=== PATIENT | male | born 1970 | race Caucasian/White ===

== ENCOUNTER → 2016-08-06 | Outpatient (CLI) | payer BC ==
[2016-08-06 16:10] VITALS: BP 139/85; TEMP 98.2; BMI 51.0
--- NOTE | 2016-08-06 16:26 | P.HPBAR ---
Bariatric H&P - History & Physicial H&P Date: 08/06/16 History & Physicial: Visit/CC: presurgical visit Patient initial contact: Initial weight: 150.956 kg Initial weight in pounds: 332.80 Height: 5 ft 7 in Initial BMI: 52.1 Last weight: Current weight: 147.735 kg Current weight in pounds: 325.70 Current BMI: 51.0 [place] body weight (based on NIH guidelines): 67.132 kg Excess body weight loss: 3.8% The patient is a 46 year-old M who presents for Bariatric Assessment. Patient presents today for preoperative consultation. He apparently has his paperwork in order. Patient has undergone psychological evaluation as well as has his R of medical necessity from his primary care doctor. Patient will be scheduled for EGD. And then gastric sleeve surgery Past Medical History Past Medical History: GERD/Reflux, Hyperlipidemia, Hypertension, Osteoarthritis (OA) Additional Past Medical History / Comment(s): BRONCHITIS; SHORTNESS OF BREATH, herniated disc History of Any Multi-Drug Resistant Organisms: C-DIFF Year Discovered:: 2013 MDRO Source:: stool Past Surgical History: Adenoidectomy, Back Surgery Additional Past Surgical History / Comment(s): C3-C4 FX Past Anesthesia/Blood Transfusion Reactions: No Reported Reaction Past Psychological History: No Psychological Hx Reported Smoking Status: Former smoker Past Alcohol Use History: None Reported Past Drug Use History: None Reported Surgical - Exam Vital Signs Temp BP 98.2 F 139/85 08/06/16 16:05 08/06/16 16:05 - General well developed, no distress - Eyes PERRL - ENT normal pinna - Neck no masses - Respiratory normal expansion - Cardiovascular Rhythm: regular - Abdomen Abdomen: soft, non tender Bariatric Assessment & Plan Plan: Patient understands the risks and benefits of the gastric sleeve procedure. The patient was scheduled for EGD. He'll to be scheduled for laparoscopic sleeve gastrectomy in 3-4 weeks. Bariatric Checklist Checklist: Plan: Checklist: EGD: 1. Hiatal hernia: 2. H. Pylori: HgbA1c: Vitamin D: Smoking: Former smoker Primary care physician referral: Rubén ([facility]) Psychiatry clearance: Cardiology clearance: Sleep study: Diet journal: VTE risk score: VTE risk level: Rehab needs at discharge:
== END | disposition home or self-care (01) ==
LOC: BARWHC3 13:31
PROVIDERS: ATTEND Surgery
DX: Z01.818 Encounter for other preprocedural examination (principal); E66.01 Morbid (severe) obesity due to excess calories; Z68.43 Body mass index [BMI] 50.0-59.9, adult; Z87.891 Personal history of nicotine dependence
CPT/HCPCS: 99211

== ENCOUNTER 2016-08-16 06:57 | Day surgery (SDC) | payer BC ==
[2016-08-14 15:17] VITALS: BMI 50.8
[~2016-08-16 06:57] MED LIST: LACTATED RINGERS 1,000 ML IV SCH; LIDOCAINE 1% 20 ML VIAL (10MG/ML) FOR IV START INTRADERMA PRN
[2016-08-16 07:08] VITALS: RESP 20; TEMP 97
[2016-08-16] MEDS ORDERED: LACTATED RINGERS 1,000 ML IV ONE ×2 (07:20)
[2016-08-16] MEDS ORDERED: PROPOFOL 10 MG/ML 20 ML VIAL IV ONE (07:40)
[2016-08-16] MEDS ORDERED: fentaNYL (PF) 50 MCG/ML 2 ML AMP ONE (07:40)
[2016-08-16] MEDS ORDERED: MIDAZOLAM 2 MG/2 ML VIAL ONE (07:40)
--- NOTE | 2016-08-16 07:43 | P.GSHP ---
History of Present Illness H&P Date: 08/16/16 Chief Complaint: GERD, morbid obesity This a 46-year-old male who's had complaints of GERD. Patient is undergoing workup for sleeve gastrectomy. Patient presents today for EGD. He's had long- standing problems with reflux. - Constitutional Constitutional: Reports as per HPI Past Medical History Past Medical History: GERD/Reflux, Hyperlipidemia, Hypertension, Osteoarthritis (OA) Additional Past Medical History / Comment(s): 2013 C-Diff, IBS, herniated disc , hx fx c3-c4 History of Any Multi-Drug Resistant Organisms: C-DIFF Date of last positivie culture/infection: 2013 MDRO Source:: stool Past Surgical History: Appendectomy Additional Past Surgical History / Comment(s): C3-C4 FX Past Anesthesia/Blood Transfusion Reactions: No Reported Reaction Past Psychological History: Anxiety, Depression Additional Psychological History / Comment(s): social anxiety Smoking Status: Former smoker Past Alcohol Use History: None Reported Additional Past Alcohol Use History / Comment(s): quit smoking age 31, smoked for 15 yrs, 1-2 PPD Past Drug Use History: None Reported - Past Family History Mother Family Medical History: No Reported History Medications and Allergies Home Medications Medication Instructions Recorded Confirmed Type Sertraline HCl [Zoloft] 150 mg PO HS 07/26/15 08/14/16 History ALPRAZolam [Xanax] 1 mg PO TID PRN 08/14/16 08/14/16 History Calcium+Vitamin D+ Magnesium 2 tab PO BID 08/14/16 08/14/16 History Iron + Vitamin C 3 tab PO DAILY 08/14/16 08/14/16 History Multivitamins, Thera [Multivitamin] 2 tab PO DAILY 08/14/16 08/14/16 History Nascrobal 500 mcg INHALATION SA 08/14/16 08/14/16 History buPROPion HCL [Wellbutrin SR] 150 mg PO HS 08/14/16 08/14/16 History Allergies Allergy/AdvReac Type Severity Reaction Status Date / Time No Known Allergies Allergy Verified 08/14/16 15:04 Surgical - Exam Vital Signs Temp Pulse Resp BP Pulse Ox 97.0 F L 77 20 123/73 96 08/16/16 07:07 08/16/16 07:07 08/16/16 07:07 08/16/16 07:07 08/16/16 07:07 - General well developed, no distress - Eyes PERRL - ENT normal pinna - Neck no masses - Respiratory normal expansion - Cardiovascular Rhythm: regular - Abdomen Abdomen: soft, non tender Assessment and Plan Plan: GERD Morbid obesity We will perform EGD.
--- NOTE | 2016-08-16 07:54 | P.OP ---
Date of Procedure: 08/16/16 Preoperative Diagnosis: GERD Morbid obesity Postoperative Diagnosis: Mild antral gastritis Procedure(s) Performed: EGD Anesthesia: MAC Surgeon: Juan Pool Pathology: other (Antral gastritis) Condition: stable Disposition: PACU Description of Procedure: The patient's placed on the endoscopy table in the lateral position. He received IV sedation. The gastroscope some placed oropharynx passed into the esophagus and into the stomach. Scope was then placed through the pylorus. The first and second portion of the duodenum appeared normal. The scope was then brought back the antrum this is mildly inflamed. A biopsies performed. Scope was then retroflexed and the remainder stomach appeared normal. There was some liquid food in the stomach. There is no evidence of any hiatal hernia. The GE junction was at 40 cm. The distal esophagus appeared normal. The proximal esophagus appeared normal. Scope was withdrawn for patient.
[2016-08-16 08:25] VITALS: BP 112/70; PULSE 68
== END 2016-08-16 08:45 | disposition home or self-care (01) ==
LOC: ORWHC2ENDO 06:57
PROVIDERS: ATTEND Surgery
DX: K21.9 Gastro-esophageal reflux disease without esophagitis (principal); K29.50 Unspecified chronic gastritis without bleeding; K58.9 Irritable bowel syndrome, unspecified; E66.01 Morbid (severe) obesity due to excess calories; I10 Essential (primary) hypertension; E78.5 Hyperlipidemia, unspecified; F41.8 Other specified anxiety disorders; F32.9 Major depressive disorder, single episode, unspecified; Z79.899 Other long term (current) drug therapy; Z87.891 Personal history of nicotine dependence; Z90.49 Acquired absence of other specified parts of digestive tract; Z98.1 Arthrodesis status
CPT/HCPCS: 88305; 88342; 43239; J2250; J3010; J2704

== ENCOUNTER → 2016-09-03 | Outpatient (CLI) | payer BC ==
[2016-09-03 11:16] LABS: Basophils % (A) 1 %; CH 29.3; Eosinophils # (A) 0.2 k/uL (0-0.7); Eosinophils % (A) 2 %; HCT 45.3 % (39.0-53.0); HDW 2.63; Luc # (Auto) 0.34; Luc % (Auto) 4; Lymphocytes # (A) 1.5 k/uL (1.0-4.8); Lymphocytes % (A) 19 %; MCH 28.6 pg (25.0-35.0); MCHC 33.1 g/dL (31.0-37.0); MCV 86.5 fL (80.0-100.0); Mean Platelet Volume 6.8; Monocytes # (A) 0.6 k/uL (0-1.0); Monocytes % (A) 8 %; Neutrophils % (A) 66 %; RBC 5.24 m/uL (4.30-5.90); RDW 13.5 % (11.5-15.5); WBC 7.7 k/uL (3.8-10.6); WBC (Perox) 7.46
[2016-09-03 11:34] LABS: ALT 41 U/L (21-72); AST 19 U/L (17-59); Alkaline Phosphatase 104 U/L (38-126); Anion Gap 12 mmol/L; Blood Urea Nitrogen 27 mg/dL (9-20); Calcium 9.3 mg/dL (8.4-10.2); Carbon Dioxide 24 mmol/L (22-30); Chloride 104 mmol/L (98-107); Glucose 107 mg/dL (74-99); Non-African American GFR(MDRD) >60 (>60 ml/min/1.73 sqM); Sodium 140 mmol/L (137-145); Total Bilirubin 0.3 mg/dL (0.2-1.3); Total Protein 6.8 g/dL (6.3-8.2)
== END | disposition home or self-care (01) ==
LOC: LABWHC1 10:21
PROVIDERS: ATTEND Surgery
DX: Z01.812 Encounter for preprocedural laboratory examination (principal)
CPT/HCPCS: 36415; 80053; 85025

== ENCOUNTER 2016-09-28 07:39 | Inpatient (IN) | payer BC ==
[~2016-09-28 07:39] MED LIST changes: +DEXAMETHASONE SOD PHOSPHATE 10 MG/ML 1 ML VIAL IV ONE; -LACTATED RINGERS 1,000 ML IV SCH; -LIDOCAINE 1% 20 ML VIAL (10MG/ML) FOR IV START INTRADERMA PRN; +MIDAZOLAM 2 MG/2 ML VIAL IV PRN; +ONDANSETRON 4 MG/2 ML VIAL IVP ONE; +SCOPOLAMINE 1.5MG/72HR PATCH TRANSDERM ONE; +ceFAZolin 3 GM in SODIUM CHLORIDE 0.9% 100 ML IVPB ONE
[2016-09-28] MEDS: LACTATED RINGERS 1,000 ML IV SCH (08:15)
[2016-09-28] MEDS ORDERED: FAMOTIDINE 20 MG/2 ML VIAL IV ONE (08:20)
[2016-09-28] MEDS ORDERED: SODIUM CHLORIDE 0.9% IRRIGATION ONE (08:27)
[2016-09-28] MEDS ORDERED: METHYLENE BLUE IRRIGATION ONE (08:27)
--- NOTE | 2016-09-28 09:46 | P.GSHP ---
History of Present Illness H&P Date: 09/28/16 Chief Complaint: Morbid obesity This a 46-year-old male referred from Dr. mooney. Patient presents today for laparoscopic sleeve gastrectomy. Patient has had lifetime problems morbid obesity. Patient has been well detailed procedure sleeve gastrectomy. He is aware the risks and complications.. He is aware the risk of gastric staple line disruption, bleeding or perforation. - Constitutional Constitutional: Reports as per HPI Past Medical History Past Medical History: GERD/Reflux, Osteoarthritis (OA) Additional Past Medical History / Comment(s): 2013 C-Diff, IBS, hx. ?herniated disc, hx fx c3-c4, ?sleep apnea-never been tested but thinks probably has History of Any Multi-Drug Resistant Organisms: C-DIFF Date of last positivie culture/infection: 2013 MDRO Source:: stool Past Surgical History: Appendectomy Additional Past Surgical History / Comment(s): EGD Past Anesthesia/Blood Transfusion Reactions: No Reported Reaction Past Psychological History: Anxiety, Depression Additional Psychological History / Comment(s): social anxiety Smoking Status: Former smoker Past Alcohol Use History: None Reported Additional Past Alcohol Use History / Comment(s): quit smoking age 31, smoked for 15 yrs, 1-2 PPD Past Drug Use History: None Reported - Past Family History Mother Family Medical History: No Reported History Medications and Allergies Home Medications Medication Instructions Recorded Confirmed Type Sertraline HCl [Zoloft] 200 mg PO HS 07/26/15 09/26/16 History ALPRAZolam [Xanax] 1 mg PO TID PRN 08/14/16 09/28/16 History Calcium+Vitamin D+ Magnesium 2 tab PO BID 08/14/16 09/28/16 History Iron + Vitamin C 3 tab PO DAILY 08/14/16 09/28/16 History Multivitamins, Thera [Multivitamin] 2 tab PO DAILY 08/14/16 09/26/16 History buPROPion HCL [Wellbutrin SR] 150 mg PO HS 08/14/16 09/26/16 History Nascobal Nasal [place] 500 mcg NASAL SA 09/26/16 09/28/16 History Allergies Allergy/AdvReac Type Severity Reaction Status Date / Time No Known Allergies Allergy Verified 09/28/16 08:00 Surgical - Exam Vital Signs Temp Pulse Resp BP Pulse Ox 97.6 F 71 16 123/72 98 09/28/16 08:07 09/28/16 08:07 09/28/16 08:07 09/28/16 08:07 09/28/16 08:07 BMI 51 - General well developed, no distress - Eyes PERRL - ENT normal pinna - Neck no masses - Respiratory normal expansion - Cardiovascular Rhythm: regular - Abdomen Abdomen: soft, non tender Assessment and Plan Plan: Morbid obesity with severe comorbidities. BMI 51. We'll perform laparoscopic sleeve gastrectomy.
[2016-09-28] MEDS ORDERED: ENOXAPARIN 40 MG/0.4 ML SYRINGE SQ STA (09:53)
[2016-09-28] MEDS ORDERED: ROCURONIUM BROMIDE 10 MG/ML 10 ML VIAL IV ONE (10:09)
[2016-09-28] MEDS ORDERED: NEOSTIGMINE 1 MG/ML 10 ML VIAL ONE (10:09)
[2016-09-28] MEDS ORDERED: MIDAZOLAM 2 MG/2 ML VIAL ONE (10:09)
[2016-09-28] MEDS ORDERED: SUCCINYLCHOLINE CHLORIDE 100 MG/5 ML SYR IV ONE (10:09)
[2016-09-28] MEDS ORDERED: HYDROmorphone (PF) 1 MG/ML ONE (10:09)
[2016-09-28] MEDS ORDERED: PROPOFOL 10 MG/ML 20 ML VIAL IV ONE (10:09)
[2016-09-28] MEDS ORDERED: fentaNYL (PF) 50 MCG/ML 2 ML AMP ONE (10:09)
[2016-09-28] MEDS ORDERED: LIDOCAINE 1% INJ 10MG/ML (20 ML MDV) ONE (10:09)
[2016-09-28] MEDS ORDERED: GLYCOPYRROLATE 0.2 MG/ML 2 ML VIAL ONE (10:09)
[2016-09-28] MEDS ORDERED: BUPIVACAIN-EPI 0.25%-1:200,000 30 ML VIAL SQ ONE (10:35)
[2016-09-28] MEDS ORDERED: LACTATED RINGERS 1,000 ML IV ONE ×2 (10:52→13:23)
[2016-09-28] MEDS ORDERED: NALOXONE 0.4 MG/ML 1 ML VIAL IV PRN (12:07)
--- NOTE | 2016-09-28 12:07 | P.OP ---
Date of Procedure: 09/28/16 Preoperative Diagnosis: Morbid obesity BMI 51 Postoperative Diagnosis: Morbid obesity Procedure(s) Performed: Laparoscopic sleeve gastrectomy Anesthesia: BARBARA Surgeon: Juan Pool Estimated Blood Loss (ml): 50 Pathology: other (Stomach) Condition: stable Disposition: PACU Description of Procedure: The patient was placed on the operating room table in the supine position. She received general anesthesia and then was placed in dorsal lithotomy position. Her abdomen was prepped and draped in sterile fashion. The skin incision sites were anesthetized 1% local Xylocaine. And then the skin was incised with an 11 blade in the left lateral position. Using a blade less trocar under direct visualization the peritoneal cavity was entered. The abdomen was insufflated and then a 5 mm laparoscope was placed into the peritoneal cavity. A 5 mm trocar was placed in the right epigastric, and right lateral position. A 15 mm trocar was placed in the supra-umbilical position and another 5 mm trocar was placed in the left lateral position. The left lateral lobe of the liver was retracted. The stomach was visualized. The stomach was massive. The greater curvature of the stomach was then dissected using the Harmonic scissors. The dissection occurred approximately 5 cm from the pylorus to the level of the left shraddha. There was no hiatal hernia seen. At this point a 40-Portuguese bougie dilator was placed the oropharynx and passed into the esophagus and into the stomach by the SEAT JOINER CHAINSTITCH. The sleeve gastrectomy was performed by using the powered echelon stapler with a seam guard buttress material. Sequential firings of the stapler were performed. The gastric remnant was then brought out through the 15 mm trocar site. The dilator was withdrawn. And a orogastric tube was replaced into the stomach. The stomach was insufflated with 200 mL of methylene blue normal saline. There was no evidence of extravasation. The abdomen was irrigated there is no bleeding seen. The César-Thierno device was used to close the 15 mm trocar with 0 Vicryl. Skin was closed with interrupted 3-0 Monocryl sutures once the trochars withdrawn. Dermabond dressing was applied. Patient was sent to recovery in stable condition.
[2016-09-28] MEDS: HYDROmorphone 1 MG/ML 1 ML SYRINGE IVP PRN ×7 (12:23→22:53)
[2016-09-28] MEDS ORDERED: ONDANSETRON 4 MG/2 ML VIAL IVP ONE (12:38)
[2016-09-28] MEDS ORDERED: LABETALOL SYRINGE 5 MG/ML IVP ONE (13:20)
[2016-09-28 14:48] VITALS: BMI 51.4
[2016-09-28] MEDS: ALBUTEROL NEBULIZED 2.5 MG/3 ML INHALATION SCH ×2 (15:44→20:26)
--- NOTE | 2016-09-28 16:35 | P.HPIM ---
History of Present Illness H&P Date: 09/28/16 Review of Systems Constitutional: Reports as per HPI, Denies anorexia, Denies chills, Denies chronic headaches, Denies chronic pain, Denies daytime sleepiness, Denies fatigue, Denies fever, Denies lethargy, Denies malaise, Denies night sweats, Denies poor appetite, Denies sweats, Denies weakness, Denies weight gain, Denies weight loss Eyes: bilateral as per HPI, denies blurred vision, denies bulging eye, denies decreased vision, denies diplopia, denies discharge, denies dry eye, denies irritation, denies itching, denies pain, denies photophobia, denies loss of peripheral vision, denies loss of vision, denies tunnel vision/blind spots Ears, nose, mouth and throat: Reports as per HPI, Denies ant. neck pain, Denies bleeding gums, Denies dental pain, Denies dysphagia, Denies epistaxis, Denies headache, Denies hoarseness, Denies mouth pain, Denies nasal congestion, Denies nasal discharge, Denies neck fullness/pressure, Denies neck lump, Denies nose pain, Denies odynophagia, Denies post-nasal drip, Denies sinus pain, Denies sinus pressure, Denies swelling in mouth, Denies swelling in throat, Denies sore throat, Denies vertigo, Denies voice changes Cardiovascular: Reports as per HPI, Denies chest pain, Denies claudication, Denies decreased exercise tolerance, Denies dyspnea on exertion, Denies edema, Denies high blood pressure, Denies irregular heart beat, Denies leg edema, Denies lightheadedness, Denies orthopnea, Denies palpitations, Denies paroxysmal nocturnal dyspnea, Denies phlebitis, Denies rapid heart beat, Denies shortness of breath, Denies syncope Respiratory: Reports as per HPI, Denies congestion, Denies cough, Denies cough with sputum, Denies dyspnea, Denies excessive sputum, Denies hemoptysis, Denies home oxygen, Denies pain, Denies pain on inspiration, Denies pleurisy, Denies respiratory infections, Denies sleep apnea, Denies snoring, Denies wheezing Gastrointestinal: Reports as per HPI, Denies abdominal pain, Denies belching, Denies bloating, Denies BRBPR, Denies change in bowel habits, Denies coffee ground emesis, Denies constipation, Denies diarrhea, Denies dyspepsia, Denies early satiety, Denies excessive gas, Denies heartburn, Denies hematemesis, Denies hematochezia, Denies indigestion, Denies jaundice, Denies lactose intolerance, Denies loss of appetite, Denies melena, Denies nausea, Denies vomiting Genitourinary: Reports as per HPI, Denies decreased libido, Denies difficulties fathering child, Denies discharge, Denies dysuria, Denies erectile dysfunction, Denies flank pain, Denies genital pain, Denies genital sores, Denies hematuria, Denies impotence, Denies incontinence, Denies kidney stones, Denies nocturia, Denies polyuria, Denies testicular lump, Denies testicular pain, Denies urinary frequency, Denies urinary hesitancy, Denies urinary retention Musculoskeletal: Reports as per HPI, Denies arm numbness/tingling, Denies atrophy, Denies fractures, Denies frequent falls, Denies gait dysfunction, Denies hot joints, Denies leg numbness/tingling, Denies limitation of motion, Denies loss of height, Denies low back pain, Denies morning stiffness, Denies muscle cramps, Denies muscle weakness, Denies myalgias, Denies neck pain, Denies neck stiffness, Denies prior amputations, Denies redness of joints, Denies shooting arm pain, Denies shooting leg pain Musculoskeletal: bilateral: ankle pain, absent: ankle stiffness, ankle swelling , as per HPI, elbow pain, elbow stiffness, elbow swelling, foot pain, foot stiffness, foot swelling Integumentary: Reports as per HPI, Denies acne, Denies boils, Denies brittle nails, Denies change in hair/nails, Denies color changes, Denies darkening of skin, Denies depigmentation, Denies dryness, Denies foot/leg ulcers, Denies growths, Denies hirsutism, Denies lesions, Denies onychomycosis, Denies pruritus , Denies rash, Denies sores, Denies striae, Denies unusual bruising, Denies wounds Neurological: Reports as per HPI, Denies aphasia, Denies ataxia, Denies balance difficulties, Denies burning pain, Denies change in mentation, Denies change in smell/taste, Denies change in speech, Denies confusion, Denies convulsions, Denies double vision, Denies gait dysfunction, Denies head injury, Denies headaches, Denies hearing difficulties, Denies lack of coordination, Denies loss of vision, Denies memory loss, Denies migraines, Denies motor disturbance, Denies numbness, Denies paralysis, Denies paresthesias, Denies seizures, Denies sensory deficit, Denies spasticity, Denies syncope, Denies tic, Denies tingling , Denies transient paralysis, Denies tremors, Denies vertigo, Denies weakness, Denies visual changes Psychiatric: Reports as per HPI, Denies anhedonia, Denies anxiety, Denies anxiety attacks, Denies change in appetite, Denies change in libido, Denies change in sleep habits, Denies confusion, Denies depression, Denies difficulty concentrating, Denies disorientation, Denies hallucinations, Denies hopelessness , Denies hypersomnia, Denies insomnia, Denies irritability, Denies memory loss, Denies mood swings, Denies paranoia, Denies sadness/tearfulness, Denies sleep disturbances, Denies suicidal ideation Endocrine: Reports as per HPI, Denies cold intolerance, Denies deepening of the voice, Denies excessive sweating, Denies excessive thirst, Denies fatigue, Denies flushing, Denies heat intolerance, Denies high blood sugars, Denies increase in ring/shoe/hat size, Denies low blood sugars, Denies nocturia, Denies palpitations, Denies polydipsia, Denies polyphagia, Denies polyuria, Denies proptosis, Denies recent glucocorticoid use, Denies thyroid mass, Denies weight change Hematologic/Lymphatic: Reports as per HPI, Denies easy bleeding, Denies easy bruising, Denies lymphadenopathy, Denies lymphedema, Denies thrombophilia Allergic/Immunologic: Reports as per HPI, Denies allergic rhinitis, Denies anaphylaxis, Denies angioedema, Denies gluten intolerance, Denies persistent infections, Denies seasonal allergies, Denies urticaria, Denies wheezing Past Medical History Past Medical History: GERD/Reflux, Hypertension, Osteoarthritis (OA) Additional Past Medical History / Comment(s): 2014 C-Diff, IBS, hx. ?herniated disc, hx fx c3-c4, ?sleep apnea-never been tested but thinks probably has History of Any Multi-Drug Resistant Organisms: C-DIFF Date of last positivie culture/infection: 2013 MDRO Source:: stool Past Surgical History: Appendectomy Additional Past Surgical History / Comment(s): EGD Past Anesthesia/Blood Transfusion Reactions: No Reported Reaction Past Psychological History: Anxiety, Depression Additional Psychological History / Comment(s): social anxiety Smoking Status: Former smoker Past Alcohol Use History: None Reported Additional Past Alcohol Use History / Comment(s): quit smoking age 31, smoked for 15 yrs, 1-2 PPD Past Drug Use History: None Reported - Past Family History Mother Family Medical History: No Reported History Brother(s) Daughter(s) Family Medical History: No Reported History Medications and Allergies Home Medications Medication Instructions Recorded Confirmed Type Sertraline HCl [Zoloft] 200 mg PO HS 07/26/15 09/26/16 History ALPRAZolam [Xanax] 1 mg PO TID PRN 08/14/16 09/28/16 History Calcium+Vitamin D+ Magnesium 2 tab PO BID 08/14/16 09/28/16 History Iron + Vitamin C 3 tab PO DAILY 08/14/16 09/28/16 History Multivitamins, Thera [Multivitamin] 2 tab PO DAILY 08/14/16 09/26/16 History buPROPion HCL [Wellbutrin SR] 150 mg PO HS 08/14/16 09/26/16 History Nascobal Nasal [place] 500 mcg NASAL SA 09/26/16 09/28/16 History Allergies Allergy/AdvReac Type Severity Reaction Status Date / Time No Known Allergies Allergy Verified 09/28/16 08:00 Physical Exam Vitals: Vital Signs Temp Pulse Pulse Resp BP BP Pulse Ox 09/28/16 15:58 62 09/28/16 15:45 60 95 09/28/16 13:45 68 16 158/73 96 09/28/16 13:40 68 16 142/70 95 09/28/16 13:38 67 16 182/101 93 L 09/28/16 13:30 66 16 182/102 95 09/28/16 13:16 66 16 196/106 96 09/28/16 13:00 67 16 188/105 93 L 09/28/16 12:45 68 16 155/79 98 09/28/16 12:30 70 16 158/77 98 09/28/16 12:22 96.9 F L 74 16 140/100 97 09/28/16 08:07 97.6 F 71 16 123/72 98 Intake and Output 09/28/16 09/28/16 09/28/16 06:59 14:59 22:59 Intake Total 2100 Output Total 400 Balance 1700 Intake: IV 2100 Output: Urine 350 Estimated Blood Loss 50 Other: Weight 148.9 kg Patient Weight 09/29/16 06:59 Weight 148.9 kg - Constitutional General appearance: cooperative, morbidly obese - EENT Eyes: anicteric sclerae, EOMI, PERRLA, dentition normal, normal appearance ENT: NA/AT, normal oropharynx - Neck Neck: no lymphadenopathy, normal ROM, no other, no rigidity, no stridor, no thyromegaly Thyroid: bilateral: normal size, negative: enlarged, firm, nodule - Respiratory Respiratory: bilateral: CTA, negative: diminished, dullness, rales, rhonchi, wheezing - Cardiovascular Rhythm: regular Heart sounds: normal: S1, S2 Abnormal Heart Sounds: no systolic murmur, no diastolic murmur, no rub, no S3 Gallop, no S4 Gallop, no click, no other - Gastrointestinal General gastrointestinal: no absent bowel sounds, decreased bowel sounds, no distended, no hepatomegaly, no hyperactive bowel sounds, no normal bowel sounds , no organomegaly, no rigid, no scaphoid, soft, no splenomegaly, no tenderness, no umbilical hernia, no ventral hernia - Integumentary Integumentary: normal, normal turgor - Neurologic Neurologic: CNII-XII intact - Musculoskeletal Musculoskeletal: strength equal bilaterally - Psychiatric Psychiatric: A&O x's 3, appropriate affect Thrombosis Risk Factor Assmnt - DVT/VTE Prophylaxis DVT/VTE Prophylaxis: Pharmacologic Prophylaxis ordered, Mechanical Prophylaxis ordered - Choose All That Apply Any of the Below Risk Factors Present?: Yes Each Factor Represents 1 point: Age 41-60 years, Obesity (BMI >25) Other Risk Factors: Yes Each Risk Factor Represents 2 Points: Laparoscopic surgery Thrombosis Risk Factor Assessment Total Risk Factor Score: 4 Thrombosis Risk Factor Assessment Level: Moderate Risk Assessment and Plan Plan: 1. Morbid obesity BMI 51, status post laparoscopic gastric sleeve on 09/28/2016 , patientis currently stable however he is a bit groggy 2 hours post op, patient isto continue on GI prophylaxis and DVT prophylaxis, patient had Dilaudid 1 mg every 2 hours when necessary for pain,an esophagram postoperatively would be done in the morning to evaluate any esophageal swelling to allow introduction of liquids him a bariatric diet clear liquids would start in the morning once cleared 2. History of GERD and also arthritis, currently asymptomatic patient would be on Pepcid IV 3. Depression on Wellbutrin and Zoloft this would be initiated once by mouth has been started 4. BMI of 51, patient was requested to have a sleep study, it was not performed monitor for pulmonary decompensation overnight, pulse oximetry is at bedside for continuous monitoring 5.Hypertension currently not on any medication 6Cardiac cardiac catheterization January 2015 normal with echocardiogram performed on June [address] Montelongo 7.GI prophylaxis and DVT prophylaxis 8.impaired fasting blood sugars with FBS of 107 Accu-Cheks will be monitored thank you be sending in allowing us to participate in the care of the patient. We are going to follow him with you during his recovery phase, recommendations to his treatment will be made based on his progress
[2016-09-28] MEDS: ACETAMINOPHEN IV (For NPO) 1,000 MG in EMPTY BAG 1 BAG IVPB ONE (17:23)
[2016-09-28] MEDS: 0.9% NACL WITH KCL 20 MEQ/L 1,000 ML IV SCH ×2 (17:27→22:53)
[2016-09-28] MEDS: ONDANSETRON 4 MG/2 ML VIAL IVP PRN (17:27)
[2016-09-28] MEDS: KETOROLAC 30 MG/ML 1 ML VIAL IVP SCH (17:29)
[2016-09-28] MEDS: AMPICILLIN-SULBACTAM 3 GM in SODIUM CHLORIDE 0.9% 100 ML IVPB SCH ×2 (17:43→22:53)
[2016-09-29] MEDS: LACTATED RINGERS 1,000 ML IV SCH ×2 (01:24→17:33)
[2016-09-29] MEDS: KETOROLAC 30 MG/ML 1 ML VIAL IVP SCH ×4 (01:24→19:27)
[2016-09-29] MEDS: 0.9% NACL WITH KCL 20 MEQ/L 1,000 ML IV SCH (01:38)
[2016-09-29] MEDS: HYDROmorphone 1 MG/ML 1 ML SYRINGE IVP PRN ×7 (01:38→19:31)
[2016-09-29] MEDS: ONDANSETRON 4 MG/2 ML VIAL IVP PRN (01:43)
[2016-09-29 07:54] LABS: Basophils % (A) 0 %; CH 29.2; Eosinophils % (A) 0 %; HCT 43.8 % (39.0-53.0); HDW 2.62; HGB 13.9 gm/dL (13.0-17.5); Luc % (Auto) 3; Lymphocytes # (A) 1.5 k/uL (1.0-4.8); Lymphocytes % (A) 10 %; MCH 28.1 pg (25.0-35.0); MCHC 31.7 g/dL (31.0-37.0); MCV 88.9 fL (80.0-100.0); Mean Platelet Volume 6.7; Monocytes % (A) 7 %; Neutrophils % (A) 80 %; RBC 4.93 m/uL (4.30-5.90); RDW 13.9 % (11.5-15.5); WBC (Perox) 14.48
[2016-09-29 07:55] LABS: Anion Gap 9 mmol/L; Blood Urea Nitrogen 15 mg/dL (9-20); Calcium 8.7 mg/dL (8.4-10.2); Carbon Dioxide 28 mmol/L (22-30); Chloride 102 mmol/L (98-107); Magnesium 2.1 mg/dL (1.6-2.3); Non-African American GFR(MDRD) >60 (>60 ml/min/1.73 sqM); Phosphorous 3.2 mg/dL (2.5-4.5); Potassium 4.6 mmol/L (3.5-5.1); Sodium 139 mmol/L (137-145)
[2016-09-29] MEDS: ENOXAPARIN 60 MG/0.6 ML SYRINGE SQ SCH ×2 (08:24→20:47)
[2016-09-29] MEDS ORDERED: ENOXAPARIN 40 MG/0.4 ML SYRINGE SQ SCH (09:00)
[2016-09-29] MEDS: ALBUTEROL NEBULIZED 2.5 MG/3 ML INHALATION SCH ×4 (09:11→19:03)
--- NOTE | 2016-09-29 10:51 | FL ---
EXAMINATION TYPE: FL UGI DATE OF EXAM: 09/29/2016 10:45 AM COMPARISON: NONE HISTORY: Post bariatric surgery, gastric sleeve TECHNIQUE: A single contrast UGI study is performed. FINDINGS: Contrast passes from the distal esophagus through the gastric sleeve with no significant he sitancy. No extravasation of contrast is evident. No free air is noted during this examination. Overhead radiographs were obtained which are unremarkable. IMPRESSIONS: 1. Normal post gastric sleeve without obstruction or hesitancy. No extravasation.
--- NOTE | 2016-09-29 11:06 | P.PN ---
Progress Note - Text The patient is doing well. He is postoperative day 1 from laparoscopic sleeve gastrectomy. His esophagram performed today shows no evidence of leak or obstruction. On exam his vital signs are stable. His abdomen soft. His incision sites are clean dry and intact. Status post sleeve yesterday. Patient will start on clear liquid diet today. He'll be discharged home tomorrow.
[2016-09-29] MEDS: ACETAMINOPHEN IV (For NPO) 1,000 MG in EMPTY BAG 1 BAG IVPB ONE (13:02)
[2016-09-29] MEDS ORDERED: ALPRAZolam 0.5 MG TAB PO PRN (17:23)
[2016-09-29] MEDS ORDERED: buPROPion SR 150 MG TABLET.ER PO SCH (21:00)
[2016-09-29] MEDS ORDERED: SERTRALINE 100 MG TAB PO SCH (21:00)
[2016-09-30] MEDS: KETOROLAC 30 MG/ML 1 ML VIAL IVP SCH ×3 (00:07→13:11)
[2016-09-30] MEDS: HYDROmorphone 1 MG/ML 1 ML SYRINGE IVP PRN ×3 (00:08→08:27)
--- NOTE | 2016-09-30 00:15 | P.PN ---
Subjective Principal diagnosis: Obesity now status post laparoscopic sleeve gastrectomy Patient seen and examined around 5 pm . Tolerating small amounts of liquid. Some nausea at times, none at the time of exam. No cough. No abdominal pain except over incision sites and that is controlled at the time of exam. No fever/chills. Has been ambulating in the hallway. Objective - Vital Signs Vital signs: Vital Signs Temp 96.5 F L 09/29/16 13:00 Pulse 76 09/29/16 19:11 Resp 16 09/29/16 13:00 BP 135/63 09/29/16 13:00 Pulse Ox 98 09/29/16 13:00 Intake & Output 09/29/16 09/29/16 09/30/16 06:59 18:59 06:59 Output Total 250 Balance -250 Output: Urine 250 Other: Voiding Method Toilet Urinal - Exam General: Patient awake alert and oriented x 3. No acute distress. HEENT: Sclerae are clear. Pupils equal, round and reactive to light bilaterally. No cervical adenopathy. No pharyngeal erythema or exudate. Mucous membranes slightly dry. Chest: Heart regular in rate and rhythm positive S1 and S2. No S3. No S4. No clicks, rubs or murmurs. Lungs: Clear to auscultation bilaterally. No wheezes rales or rhonchi. Respirations even and nonlabored. Abdomen/GI: Bowel sounds present in all 4 quadrants. Bowel sounds normoactive. No abdominal tenderness. No mass. No hepatomegaly or splenomegaly. No bruits. Incisions healing well. Vascular: Radial pulses equal. 2/4. Skin: No rash. Se Abdomen. Neurologic: Awake, alert and oriented times 3. No lateralizing deficits noted on gross inspection. Psychiatric: Denies suicidal ideation. State stable with trusted counselor and medication. - Labs CBC & Chem 7: 09/29/16 07:02 09/29/16 07:02 Labs: Abnormal Lab Results - Last 24 Hours (Table) 09/29/16 Range/Units 07:02 WBC 15.0 H (3.8-10.6) k/uL Neutrophils # 12.0 H (1.3-7.7) k/uL Assessment and Plan Plan: Assessment: 1. Morbid obesity BMI 51, status post laparoscopic gastric sleeve on 09/28/2016 , doing well, ambulating and tolerating small amounts of liquid. 2. History of GERD and also arthritis, currently asymptomatic 3. Depression on Wellbutrin and Zoloft at home. 4. BMI of 51, patient was requested to have a sleep study, it was not performed. Pulse ox per respiratory was 96% overnight. 5.Hypertension histtory currently not on any medication, currently stable. 6Cardiac cardiac catheterization January 2015 normal with echocardiogram performed on June [address] Montelongo 7.DVT prophylaxis 8.impaired fasting blood sugars with FBS of 107 9. Leukocytosis reactionary secondary to surgery versus other. 10. Anxiety history Plan: 1. Restart Wellbutrin and Zoloft now that has passed screen. 2. check AM CBC and Follow up glucose. 3. Follow up lytes on fluids, increase hydration as patient with limited PO intake secondary to surgery and reports urine is concentrated. 4. Restart PRN Xanax.
[2016-09-30 01:24] VITALS: RESP 16
[2016-09-30] MEDS: LACTATED RINGERS 1,000 ML IV SCH ×4 (01:30→13:16)
[2016-09-30 07:13] VITALS: TEMP 96.3
[2016-09-30 07:25] LABS: Basophils % (A) 1 %; CH 29.4; CHCM 33.4; Eosinophils # (A) 0.2 k/uL (0-0.7); Eosinophils % (A) 2 %; HCT 38.2 % (39.0-53.0); HDW 2.67; HGB 12.9 gm/dL (13.0-17.5); Luc # (Auto) 0.23; Luc % (Auto) 3; Lymphocytes # (A) 1.7 k/uL (1.0-4.8); Lymphocytes % (A) 21 %; MCH 29.9 pg (25.0-35.0); MCHC 33.8 g/dL (31.0-37.0); MCV 88.5 fL (80.0-100.0); Mean Platelet Volume 8.2; Monocytes % (A) 12 %; Neutrophils # (A) 5.2 k/uL (1.3-7.7); Neutrophils % (A) 62 %; RBC 4.31 m/uL (4.30-5.90); RDW 13.8 % (11.5-15.5); WBC 8.4 k/uL (3.8-10.6); WBC (Perox) 8.66
[2016-09-30 07:38] LABS: Anion Gap 7 mmol/L; Calcium 8.4 mg/dL (8.4-10.2); Carbon Dioxide 27 mmol/L (22-30); Chloride 104 mmol/L (98-107); Glucose 90 mg/dL (74-99); Non-African American GFR(MDRD) >60 (>60 ml/min/1.73 sqM); Sodium 138 mmol/L (137-145)
[2016-09-30 07:42] LABS: Blood Urea Nitrogen 12 mg/dL (9-20); Potassium 4.5 mmol/L (3.5-5.1)
[2016-09-30] MEDS: ALBUTEROL NEBULIZED 2.5 MG/3 ML INHALATION SCH ×3 (08:13→15:18)
[2016-09-30] MEDS: ENOXAPARIN 60 MG/0.6 ML SYRINGE SQ SCH (08:20)
[2016-09-30] MEDS ORDERED: HYDROcodone/APAP 7.5-325MG 1 EACH TAB PO PRN ×2 (09:04→16:51)
[2016-09-30] MEDS ORDERED: ACETAMINOPHEN TAB 325 MG TAB PO PRN (09:04)
--- NOTE | 2016-09-30 10:15 | P.DS ---
Providers Date of admission: 09/28/16 07:39 Expected date of discharge: 09/30/16 Attending physician: Juan Pool Consults: 09/28/16 12:07 Consult Physician Routine Consulting Provider: Irina Curry Consult Reason/Comments: Medical management Do you want consulting provider notified?: Yes Primary care physician: Greg Kothari Eleanor Slater Hospital Course: This is a 46-year-old male who underwent laparoscopic sleeve gastrectomy. His postoperative stay was unremarkable. Please see hospital chart for details. He 'll follow-up in the clinic in 2 weeks. Procedures: Laparoscopic sleeve gastrectomy Patient Condition at Discharge: Good Plan - Discharge Summary New Discharge Prescriptions: HYDROcodone/APAP 7.5-325MG [[place] 7.5] 1 each PO Q4H PRN #60 tab PRN Reason: Pain HYDROcodone/APAP 7.5-325MG [[place] 7.5] 1 each PO Q4H PRN #60 tab PRN Reason: Pain HYDROcodone/APAP 7.5-325MG [[place] 7.5] 1 each PO Q4H PRN #20 tab PRN Reason: Pain Omeprazole 40 mg PO DAILY #90 capsule. Ondansetron HCl [Zofran] 4 mg PO Q6HR PRN #30 tablet PRN Reason: Nausea Sucralfate [Carafate] 1 gm PO BID #90 tablet Discharge Medication List Sertraline HCl [Zoloft] 200 mg PO HS 07/26/15 [History] ALPRAZolam [Xanax] 1 mg PO TID PRN 08/14/16 [History] Calcium+Vitamin D+ Magnesium 2 tab PO BID 08/14/16 [History] Iron + Vitamin C 3 tab PO DAILY 08/14/16 [History] Multivitamins, Thera [Multivitamin] 2 tab PO DAILY 08/14/16 [History] buPROPion HCL [Wellbutrin SR] 150 mg PO HS 08/14/16 [History] Nascobal Nasal [place] 500 mcg NASAL SA 09/26/16 [History] HYDROcodone/APAP 7.5-325MG [[place] 7.5] 1 each PO Q4H PRN #20 tab 09/30/16 [Rx] HYDROcodone/APAP 7.5-325MG [[place] 7.5] 1 each PO Q4H PRN #60 tab 09/30/16 [Rx] HYDROcodone/APAP 7.5-325MG [[place] 7.5] 1 each PO Q4H PRN #60 tab 09/30/16 [Rx] Omeprazole 40 mg PO DAILY #90 capsule. 09/30/16 [Rx] Ondansetron HCl [Zofran] 4 mg PO Q6HR PRN #30 tablet 09/30/16 [Rx] Sucralfate [Carafate] 1 gm PO BID #90 tablet 09/30/16 [Rx] Follow up Appointment(s)/Referral(s): [facility],. [NON-STAFF] - 2 Weeks Discharge Disposition: HOME SELF-CARE
[2016-09-30 18:58] VITALS: BP 178/94; PULSE 62
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
== END 2016-09-30 18:30 | disposition home or self-care (01) | DRG 621 ==
LOC: 2ORWHC 07:39 → 3SUR 12:07 → UNDODISIN 09-30 14:40
PROVIDERS: ADMIT Surgery; ATTEND Surgery
PROC: 0DB64Z3 Excision of Stomach, Percutaneous Endoscopic Approach, Vertical (ICD-10-PCS; principal; 2016-09-28 10:00)
DX: E66.01 Morbid (severe) obesity due to excess calories (principal); I10 Essential (primary) hypertension; F32.9 Major depressive disorder, single episode, unspecified; F41.9 Anxiety disorder, unspecified; K21.9 Gastro-esophageal reflux disease without esophagitis; F40.10 Social phobia, unspecified; M19.90 Unspecified osteoarthritis, unspecified site; Z68.43 Body mass index [BMI] 50.0-59.9, adult; Z87.891 Personal history of nicotine dependence; Z79.899 Other long term (current) drug therapy
CPT/HCPCS: 74240; 80048; 80051; 82310; 82565; 83735; 84100; 84520; 85025; 88307; 94640; 94762

== ENCOUNTER → 2016-10-08 | Outpatient (CLI) | payer BC ==
[2016-10-08 14:43] VITALS: BP 135/92; PULSE 70; RESP 16; TEMP 98.4; BMI 47.9
--- NOTE | 2016-10-08 16:29 | P.HPBAR ---
Bariatric H&P - History & Physicial H&P Date: 10/08/16 History & Physicial: Visit/CC: sleeve follow-up Patient initial contact: Initial weight: 150.956 kg Initial weight in pounds: 332.80 Height: 5 ft 7 in Initial BMI: 52.1 Last weight: Current weight: 138.856 kg Current weight in pounds: 306.00 Current BMI: 47.9 [place] body weight (based on NIH guidelines): 67.132 kg Excess body weight loss: 14.5% The patient is a 46 year-old M who presents for Bariatric Assessment. The patient rents today for sleeve gastric follow-up. He states he's had some issues with some diarrhea. He denies a significant abdominal pain. He is tolerating his liquid diet. Review of Systems Constitutional: Reports as per HPI Past Medical History Past Medical History: GERD/Reflux, Hypertension, Osteoarthritis (OA) Additional Past Medical History / Comment(s): 2013 C-Diff, IBS, hx. ?herniated disc, hx fx c3-c4, ?sleep apnea-never been tested but thinks probably has History of Any Multi-Drug Resistant Organisms: C-DIFF Year Discovered:: 2013 MDRO Source:: stool Past Surgical History: Appendectomy Additional Past Surgical History / Comment(s): EGD Past Anesthesia/Blood Transfusion Reactions: No Reported Reaction Past Psychological History: Anxiety, Depression Additional Psychological History / Comment(s): social anxiety Smoking Status: Former smoker Past Alcohol Use History: None Reported Additional Past Alcohol Use History / Comment(s): quit smoking age 31, smoked for 15 yrs, 1-2 PPD Past Drug Use History: None Reported - Past Family History Mother Family Medical History: No Reported History Brother(s) Daughter(s) Family Medical History: No Reported History Surgical - Exam Vital Signs Temp Pulse Resp BP 98.4 F 70 16 135/92 10/08/16 14:40 10/08/16 14:40 10/08/16 14:40 10/08/16 14:40 - General well developed, no distress - Eyes PERRL - ENT normal pinna - Neck no masses - Respiratory normal expansion - Cardiovascular Rhythm: regular - Abdomen Abdomen: soft, non tender Bariatric Assessment & Plan Plan: Status post sleeve gastrectomy. Patient is doing quite well. I reassured him that his diarrhea symptoms will most likely improve once his diet changes. He' ll follow-up in 2 weeks. Bariatric Checklist Checklist: Plan: Checklist: EGD: 1. Hiatal hernia: 2. H. Pylori: HgbA1c: Vitamin D: Smoking: Former smoker Primary care physician referral: Rubén ([facility]) Psychiatry clearance: Cardiology clearance: Sleep study: Diet journal: VTE risk score: VTE risk level: Rehab needs at discharge:
== END | disposition home or self-care (01) ==
LOC: BARWHC3 13:39
PROVIDERS: ATTEND Surgery
DX: Z48.815 Encounter for surgical aftercare following surgery on the digestive system (principal); Z71.3 Dietary counseling and surveillance; K21.9 Gastro-esophageal reflux disease without esophagitis; R19.7 Diarrhea, unspecified; Z68.42 Body mass index [BMI] 45.0-49.9, adult; Z98.84 Bariatric surgery status; Z87.891 Personal history of nicotine dependence
CPT/HCPCS: 99211

== ENCOUNTER → 2016-10-22 | Outpatient (CLI) | payer BC ==
[2016-10-22 13:30] VITALS: BP 132/76; PULSE 77; RESP 14; TEMP 98.2; BMI 46.7
--- NOTE | 2016-10-22 13:51 | P.HPBAR ---
Bariatric H&P - History & Physicial H&P Date: 10/22/16 History & Physicial: Visit/CC: sleeve f/u Patient initial contact: Initial weight: 150.956 kg Initial weight in pounds: 332.80 Height: 5 ft 7 in Initial BMI: 52.1 Last weight: Current weight: 135.443 kg Current weight in pounds: 298.60 Current BMI: 46.7 [place] body weight (based on NIH guidelines): 67.132 kg Excess body weight loss: 18.5% The patient is a 46 year-old M who presents for Bariatric Assessment. The patient presents for sleeve gastrectomy follow-up. He is doing quite well. He has some mild symptoms of GERD. Patient states that he was tested for C. diff colitis and was positive. He currently is undergoing treatment by Dr. mooney. The patient states his this is a second time having C. diff colitis. Past Medical History Past Medical History: GERD/Reflux, Hypertension, Osteoarthritis (OA) Additional Past Medical History / Comment(s): 2013 and September 2016 C-Diff, IBS, hx. ?herniated disc, hx fx c3-c4, ?sleep apnea-never been tested but thinks probably has History of Any Multi-Drug Resistant Organisms: C-DIFF Year Discovered:: September 2016 (2013 as well) MDRO Source:: stool Past Surgical History: Appendectomy Additional Past Surgical History / Comment(s): EGD, gastric sleeve September 2016 Past Anesthesia/Blood Transfusion Reactions: No Reported Reaction Past Psychological History: Anxiety, Depression Additional Psychological History / Comment(s): social anxiety Smoking Status: Former smoker Past Alcohol Use History: None Reported Additional Past Alcohol Use History / Comment(s): quit smoking age 31, smoked for 15 yrs, 1-2 PPD Past Drug Use History: None Reported - Past Family History Mother Family Medical History: No Reported History Brother(s) Daughter(s) Family Medical History: No Reported History Surgical - Exam Vital Signs Temp Pulse Resp BP 98.2 F 77 14 132/76 10/22/16 13:24 10/22/16 13:24 10/22/16 13:24 10/22/16 13:24 - General well developed, no distress - Eyes PERRL - ENT normal pinna - Neck no masses - Respiratory normal expansion - Abdomen Abdomen: soft, non tender Bariatric Assessment & Plan Plan: Status post sleeve gastrectomy. The patient is doing quite well. He'll follow- up in one month. The patient is managing his GERD with Pepto-Bismol. He does not wish to take PPIs secondary to the risk of C. diff colitis. Bariatric Checklist Checklist: Plan: Checklist: EGD: 1. Hiatal hernia: 2. H. Pylori: HgbA1c: Vitamin D: Smoking: Former smoker Primary care physician referral: Rubén ([facility]) Psychiatry clearance: Cardiology clearance: Sleep study: Diet journal: VTE risk score: VTE risk level: Rehab needs at discharge:
== END | disposition home or self-care (01) ==
LOC: BARWHC3 13:05
PROVIDERS: ATTEND Surgery
DX: K21.9 Gastro-esophageal reflux disease without esophagitis (principal); Z87.891 Personal history of nicotine dependence; Z98.84 Bariatric surgery status; Z79.899 Other long term (current) drug therapy
CPT/HCPCS: 99211

== ENCOUNTER → 2016-11-26 | Outpatient (CLI) | payer BC ==
[2016-11-26 13:54] VITALS: BP 120/70; PULSE 69; RESP 14; TEMP 98.5; BMI 43.9
--- NOTE | 2016-11-26 15:59 | P.HPBAR ---
Bariatric H&P - History & Physicial H&P Date: 11/26/16 History & Physicial: Visit/CC: sleeve f/u dysphagia Patient initial contact: Initial weight: 150.956 kg Initial weight in pounds: 332.80 Height: 5 ft 7 in Initial BMI: 52.1 Last weight: Current weight: 127.323 kg Current weight in pounds: 280.70 Current BMI: 43.9 [place] body weight (based on NIH guidelines): 67.132 kg Excess body weight loss: 28.1% The patient is a 46 year-old M who presents for Bariatric Assessment. The patient presents today for sleeve gastric a fall. He is doing quite well. He' s had excellent weight loss. At some mild GERD symptoms. Past Medical History Past Medical History: GERD/Reflux, Hypertension, Osteoarthritis (OA) Additional Past Medical History / Comment(s): 2013 and September 2016 C-Diff, IBS, hx. ?herniated disc, hx fx c3-c4, ?sleep apnea-never been tested but thinks probably has History of Any Multi-Drug Resistant Organisms: C-DIFF Year Discovered:: September 2016 (2013 as well) MDRO Source:: stool Past Surgical History: Appendectomy Additional Past Surgical History / Comment(s): EGD, gastric sleeve September 2016 Past Anesthesia/Blood Transfusion Reactions: No Reported Reaction Past Psychological History: Anxiety, Depression Additional Psychological History / Comment(s): social anxiety Smoking Status: Former smoker Past Alcohol Use History: None Reported Additional Past Alcohol Use History / Comment(s): quit smoking age 31, smoked for 15 yrs, 1-2 PPD Past Drug Use History: None Reported - Past Family History Mother Family Medical History: No Reported History Brother(s) Daughter(s) Family Medical History: No Reported History Surgical - Exam Vital Signs Temp Pulse Resp BP 98.5 F 69 14 120/70 11/26/16 13:51 11/26/16 13:51 11/26/16 13:51 11/26/16 13:51 - General well developed, no distress - Eyes PERRL - ENT normal pinna - Neck no masses - Respiratory normal expansion - Cardiovascular Rhythm: regular - Abdomen Abdomen: soft, non tender Bariatric Assessment & Plan Plan: Status post sleeve gastrectomy. Patient is doing quite well. He'll follow-up one month. His GERD is being treated with omeprazole. Bariatric Checklist Checklist: Plan: Checklist: EGD: 1. Hiatal hernia: 2. H. Pylori: HgbA1c: Vitamin D: Smoking: Former smoker Primary care physician referral: Rubén ([facility]) Psychiatry clearance: Cardiology clearance: Sleep study: Diet journal: VTE risk score: VTE risk level: Rehab needs at discharge:
== END ==
LOC: BARWHC3 13:13
PROVIDERS: ATTEND Surgery
DX: Z48.815 Encounter for surgical aftercare following surgery on the digestive system (principal); Z98.84 Bariatric surgery status; K21.9 Gastro-esophageal reflux disease without esophagitis; Z79.899 Other long term (current) drug therapy; Z87.891 Personal history of nicotine dependence
CPT/HCPCS: 99211

== ENCOUNTER → 2017-01-02 | Outpatient (CLI) | payer BC ==
[2017-01-02 09:38] VITALS: BMI 40.0
== END | disposition home or self-care (01) ==
LOC: BARWHC3 08:55
PROVIDERS: ATTEND Surgery
DX: E66.01 Morbid (severe) obesity due to excess calories (principal); Z71.3 Dietary counseling and surveillance; Z68.41 Body mass index [BMI] 40.0-44.9, adult
CPT/HCPCS: 97803

== ENCOUNTER → 2017-01-21 | Outpatient (CLI) | payer BC ==
[2017-01-21 13:22] VITALS: BP 109/75; PULSE 85; TEMP 98.7; BMI 38.5
--- NOTE | 2017-01-21 15:22 | FL ---
EXAMINATION TYPE: FL barium swallow DATE OF EXAM: 01/21/2017 CLINICAL HISTORY: Dysphagia COMPARISON: September 29, 2016 Contrast: 3 oz EZ Paque. 7 sec fl time. The patient ingested contrast without difficulty or delay. Noted are postsurgical changes of gastric sleeve. There is no evidence for leak or obstruction. Contrast is noted within the duodenum. IMPRESSION: gastric sleeve without evidence for obstruction or leak at this point in time.
== END | disposition home or self-care (01) ==
LOC: BARWHC3 13:01
PROVIDERS: ATTEND Surgery
DX: R13.10 Dysphagia, unspecified (principal); Z98.84 Bariatric surgery status
CPT/HCPCS: 74220; 99211

== ENCOUNTER 2017-01-24 06:42 | Day surgery (SDC) | payer BC ==
[2017-01-23 10:46] VITALS: BMI 38.3
[~2017-01-24 06:42] MED LIST changes: -DEXAMETHASONE SOD PHOSPHATE 10 MG/ML 1 ML VIAL IV ONE; +LACTATED RINGERS 1,000 ML IV SCH; -MIDAZOLAM 2 MG/2 ML VIAL IV PRN; -ONDANSETRON 4 MG/2 ML VIAL IVP ONE; -SCOPOLAMINE 1.5MG/72HR PATCH TRANSDERM ONE; -ceFAZolin 3 GM in SODIUM CHLORIDE 0.9% 100 ML IVPB ONE
[2017-01-24 07:04] VITALS: TEMP 97.9
[2017-01-24] MEDS ORDERED: LIDOCAINE 1% INJ 10MG/ML (20 ML MDV) ONE (07:37)
[2017-01-24] MEDS ORDERED: GLYCOPYRROLATE 0.2 MG/ML 2 ML VIAL ONE (07:37)
[2017-01-24] MEDS ORDERED: PROPOFOL 10 MG/ML 20 ML VIAL IV ONE (07:37)
--- NOTE | 2017-01-24 07:40 | P.GSHP ---
History of Present Illness H&P Date: 01/24/17 Chief Complaint: Dysphagia The 46-year-old male who presents today for EGD. Patient's had a previous history of sleeve gastrectomy. He has lost approximately 80 pounds since September. He's had some progressive dysphagia. He presents today for EGD. Past Medical History Past Medical History: GERD/Reflux, Hypertension, Osteoarthritis (OA) Additional Past Medical History / Comment(s): 2013 and September 2016 C-Diff, IBS, hx. ?herniated disc, hx fx c3-c4, ?sleep apnea-never been tested but thinks probably has History of Any Multi-Drug Resistant Organisms: C-DIFF Date of last positivie culture/infection: September 2016 (2013 as well) MDRO Source:: stool Past Surgical History: Appendectomy, Bariatric Surgery Additional Past Surgical History / Comment(s): EGD, gastric sleeve September 2016 Past Anesthesia/Blood Transfusion Reactions: No Reported Reaction Smoking Status: Former smoker - Past Family History Mother Family Medical History: No Reported History Brother(s) Daughter(s) Family Medical History: No Reported History Medications and Allergies Home Medications Medication Instructions Recorded Confirmed Type Sertraline HCl [Zoloft] 200 mg PO HS 07/26/15 01/24/17 History ALPRAZolam [Xanax] 1 mg PO TID PRN 08/14/16 01/24/17 History Allergies Allergy/AdvReac Type Severity Reaction Status Date / Time No Known Allergies Allergy Verified 01/23/17 10:42 Surgical - Exam Vital Signs Temp Pulse Resp BP Pulse Ox 97.9 F 49 L 20 137/89 94 L 01/24/17 07:02 01/24/17 07:02 01/24/17 07:02 01/24/17 07:02 01/24/17 07:02 - General well developed, no distress - Eyes PERRL - ENT normal pinna - Neck no masses - Respiratory normal expansion - Cardiovascular Rhythm: regular - Abdomen Abdomen: soft, non tender Assessment and Plan Plan: Dysphagia. We'll perform EGD.
--- NOTE | 2017-01-24 07:50 | P.OP ---
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 He received IV sedation. The gastroscope placed oropharynx and passed in the esophagus and stomach. Scope was then placed through the gastric sleeve into the area pylorus and into the first and second portion of the duodenum. The scope was then brought back into the antrum and this appeared mildly inflamed. A biopsies was performed. The scope was then brought back through the gastric sleeve and at the level of the incisura there appeared to be a slight stricture or angulation. A 20 mm balloon was placed across the incisura the balloon was expanded and held in position for 3 minutes. The balloon was then withdrawn. There was no evidence of any remaining any stricture. The scope was then withdrawn. The remainder of the sleeve appeared normal. The GE junction at 4 40 cms. The distal esophagus appeared normal. The proximal esophagus. Normal. Scope was withdrawn from patient.
[2017-01-24 08:14] VITALS: BP 114/73; PULSE 44; RESP 18
== END 2017-01-24 08:27 | disposition home or self-care (01) ==
LOC: ORWHC2ENDO 06:42
PROVIDERS: ATTEND Surgery
DX: K95.89 Other complications of other bariatric procedure (principal); K31.89 Other diseases of stomach and duodenum; K29.70 Gastritis, unspecified, without bleeding; R13.10 Dysphagia, unspecified; K21.9 Gastro-esophageal reflux disease without esophagitis; I10 Essential (primary) hypertension; M19.90 Unspecified osteoarthritis, unspecified site; F39 Unspecified mood [affective] disorder; Z79.899 Other long term (current) drug therapy; Z87.891 Personal history of nicotine dependence
CPT/HCPCS: 88305; 88342; 43239; 43249; J2001; J2704; C1726

== ENCOUNTER → 2017-02-04 | Outpatient (CLI) | payer BC ==
[2017-02-04 14:37] VITALS: BP 124/67; PULSE 52; RESP 16; TEMP 97.8; BMI 37.5
--- NOTE | 2017-02-04 16:10 | P.HPBAR ---
Bariatric H&P - History & Physicial H&P Date: 02/04/17 History & Physicial: Visit/CC: sleeve f/u Patient initial contact: Initial weight: 150.956 kg Initial weight in pounds: 332.80 Height: 5 ft 7 in Initial BMI: 52.1 Last weight: 245 Current weight: 108.59 kg Current weight in pounds: 239.40 Current BMI: 37.5 [place] body weight (based on NIH guidelines): 67.132 kg Excess body weight loss: 50.5% The patient is a 46 year-old M who presents for Bariatric Assessment. Patient presents today for sleeve gastrectomy follow-up. He's doing quite well. He's had minimal GERD symptoms. He he is currently lost approximately 93 pounds. He had an EGD performed several weeks ago states that he feels improvement with his dysphagia after the EGD is performed. Past Medical History Past Medical History: GERD/Reflux, Hypertension, Osteoarthritis (OA) Additional Past Medical History / Comment(s): 2013 and September 2016 C-Diff, IBS, hx. ?herniated disc, hx fx c3-c4, ?sleep apnea-never been tested but thinks probably has History of Any Multi-Drug Resistant Organisms: C-DIFF Year Discovered:: September 2016 (2013 as well) MDRO Source:: stool Past Surgical History: Appendectomy, Bariatric Surgery Additional Past Surgical History / Comment(s): EGD, gastric sleeve September 2016 Past Anesthesia/Blood Transfusion Reactions: No Reported Reaction Past Psychological History: Anxiety, Depression Additional Psychological History / Comment(s): social anxiety Smoking Status: Former smoker - Past Family History Mother Family Medical History: No Reported History Brother(s) Daughter(s) Family Medical History: No Reported History Surgical - Exam Vital Signs Temp Pulse Resp BP 97.8 F 52 L 16 124/67 02/04/17 14:29 02/04/17 14:29 02/04/17 14:29 02/04/17 14:29 - General well developed, no distress - Eyes PERRL - ENT normal pinna - Neck no masses - Cardiovascular Rhythm: regular - Abdomen Abdomen: soft, non tender Bariatric Assessment & Plan Plan: Status post sleeve yesterday. Patient is doing quite well. He's had minimal GERD symptoms. His dysphagia is improved. He'll follow-up in one month. Bariatric Checklist Checklist: Plan: Checklist: EGD: 1. Hiatal hernia: 2. H. Pylori: HgbA1c: Vitamin D: Smoking: Former smoker Primary care physician referral: Rubén ([facility]) Psychiatry clearance: Cardiology clearance: Sleep study: Diet journal: VTE risk score: VTE risk level: Rehab needs at discharge:
== END | disposition home or self-care (01) ==
LOC: BARWHC3 14:24
PROVIDERS: ATTEND Surgery
DX: Z09 Encounter for follow-up examination after completed treatment for conditions other than malignant neoplasm (principal); I10 Essential (primary) hypertension; F32.9 Major depressive disorder, single episode, unspecified; F41.9 Anxiety disorder, unspecified; Z98.84 Bariatric surgery status; Z87.891 Personal history of nicotine dependence
CPT/HCPCS: 99211

== ENCOUNTER → 2017-09-24 | Outpatient (CLI) | payer BC ==
[2017-09-24 14:34] VITALS: BP 118/79; PULSE 57; RESP 16; TEMP 98.6; BMI 29.5
--- NOTE | 2017-09-24 16:34 | P.BASOAP ---
Subjective Progress Note Date: 09/24/17 Principal diagnosis: Morbid obesity Patient returns today for evaluation. He lost his insurance therefore he has not seen our clinic since last January. In December of last year he had a dilation performed which improved his dysphagia symptoms. Still has some difficulty with meats but otherwise is doing quite well. Denies heartburn, no nausea or vomiting. Excellent weight loss. Currently weighs 188. Objective - Vital Signs Vital signs: Vital Signs Temp 98.6 F 09/24/17 14:32 Pulse 57 L 09/24/17 14:32 Resp 16 09/24/17 14:32 BP 118/79 09/24/17 14:32 Pulse Ox Intake & Output 09/23/17 09/24/17 09/24/17 18:59 06:59 18:59 Weight 85.36 kg - Exam Abdomen: Soft, nontender, nondistended Assessment/Plan (1) Morbid obesity Narrative/Plan: We'll check basic lab work at this time. Patient to meet with dietary today. Follow-up with Dr. Pool in 4-6 weeks. Plan: Date: 09/24/17 Initial Weight: 150.956 kg Initial BMI: 52.1 Current Weight: 85.36 kg Current BMI: 29.5 Type of Surgery: Total Volume in Band: Previous Volume: Volume Removed: Volume Added: Band Size:
== END | disposition home or self-care (01) ==
LOC: BARWHC3 14:22
PROVIDERS: ATTEND Surgery
DX: E66.01 Morbid (severe) obesity due to excess calories (principal); Z68.29 Body mass index [BMI] 29.0-29.9, adult; Z71.3 Dietary counseling and surveillance
CPT/HCPCS: 97803; 99211

== ENCOUNTER → 2019-08-03 | Outpatient (CLI) | payer BC, OTHER ==
[2019-08-03 15:45] VITALS: RESP 16; BMI 32.2
--- NOTE | 2019-08-03 15:55 | P.HPBAR ---
Bariatric H&P - History & Physicial H&P Date: 08/03/19 History & Physicial: Visit/CC: sleeve f/u Patient initial contact: Initial weight: 150.956 kg Initial weight in pounds: 332.80 Height: 5 ft 7 in Initial BMI: 52.1 Last weight: Current weight: 93.44 kg Current weight in pounds: 206.00 Current BMI: 32.2 Valentine body weight (based on NIH guidelines): 67.132 kg Excess body weight loss: 68.6% The patient is a 49 year-old M who presents for Bariatric Assessment. Patient presents today for sleeve gastrectomy follow-up. Patient states that he was arrested for a DUI. He was asking if the sleeve gastrectomy affects absorption local. The patient that absorption is not changed with sleeve gastrectomy. He has had some weight gain/visit. He currently weighs 206 pounds he was 18 pounds director private 2 years ago. Patient's had some mild GERD. The patient also states that his urine has been to dilute for testing. Patient states that he drinks large amount of water. I suggest that he does not drink the night before his urine test. Past Medical History Past Medical History: GERD/Reflux, Hypertension, Osteoarthritis (OA) Additional Past Medical History / Comment(s): 2013 and September 2016 C-Diff, IBS, hx. ?herniated disc, hx fx c3-c4, ?sleep apnea-never been tested but thinks probably has History of Any Multi-Drug Resistant Organisms: C-DIFF Year Discovered:: September 2016 (2013 as well) MDRO Source:: stool Past Surgical History: Appendectomy, Bariatric Surgery Additional Past Surgical History / Comment(s): EGD, gastric sleeve September 2016 Past Anesthesia/Blood Transfusion Reactions: No Reported Reaction Past Psychological History: Anxiety, Depression Additional Psychological History / Comment(s): social anxiety Smoking Status: Former smoker Past Alcohol Use History: None Reported Additional Past Alcohol Use History / Comment(s): QUIT SMOKING AT AGE 31 SMOKED 1-2 PPD FOR 15 YRS Past Drug Use History: None Reported - Past Family History Mother Family Medical History: No Reported History Brother(s) Daughter(s) Family Medical History: No Reported History Surgical - Exam Vital Signs Resp 16 08/03/19 15:35 - General well developed, well nourished, no distress - Eyes PERRL - ENT normal pinna - Neck no masses - Respiratory normal expansion - Cardiovascular Rhythm: regular - Abdomen Abdomen: soft, non tender Bariatric Assessment & Plan Plan: Status post sleeve gastrectomy. Patient appears minimal on observed. With regards to his urine and alcohol testing. I recommended patient not drink large amount of water before his urine test. 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 His procedure is purely restrictive with no change in absorption. There is no malabsorption with gastric sleeve. Bariatric Checklist Checklist: Plan: Checklist: EGD: 1. Hiatal hernia: 2. H. Pylori: HgbA1c: Vitamin D: Smoking: Former smoker Primary care physician referral: [facility] ([facility]) Psychiatry clearance: Cardiology clearance: Sleep study: Diet journal: VTE risk score: VTE risk level: Rehab needs at discharge:
== END | disposition home or self-care (01) ==
LOC: BARWHC3 15:24
PROVIDERS: ATTEND Surgery
DX: Z48.815 Encounter for surgical aftercare following surgery on the digestive system (principal); K21.9 Gastro-esophageal reflux disease without esophagitis; Z87.891 Personal history of nicotine dependence; E66.01 Morbid (severe) obesity due to excess calories; Z98.84 Bariatric surgery status; Z68.32 Body mass index [BMI] 32.0-32.9, adult
CPT/HCPCS: 97803; 99211